=== PATIENT | female | born 2000 ===

== ENCOUNTER → 2019-03-04 | Outpatient (CLI) | payer OTHER | END | disposition home or self-care (01) | LOC: PRENATAL 08:36 | DX: O35.0XX1 Maternal care for (suspected) central nervous system malformation in fetus, fetus 1 (principal); Z34.03 Encounter for supervision of normal first pregnancy, third trimester ==

== ENCOUNTER 2019-04-08 09:30 | Outpatient (CLI) | payer OTHER | END 2019-04-08 10:15 | disposition home or self-care (01) | LOC: PRENATAL 09:30 | DX: O35.0XX1 Maternal care for (suspected) central nervous system malformation in fetus, fetus 1 (principal) ==

== ENCOUNTER 2019-05-06 08:49 | Outpatient (CLI) | payer OTHER ==
[~2019-05-06] VITALS: Ht 149.9 cm; Wt 65.3 kg
[2019-05-07] MEDS ORDERED: PRENATAL TABLE1 EAC1 PO (20:08)
== END 2019-05-07 08:00 | disposition home or self-care (01) ==
LOC: PRENATAL 08:49 → LDR 05-07 19:42 → PRENATAL 05-07 19:42 → LDR 05-07 20:00
DX: O26.843 Uterine size-date discrepancy, third trimester (principal); O35.0XX0 Maternal care for (suspected) central nervous system malformation in fetus, not applicable or unspecified

== ENCOUNTER 2019-05-07 20:06 | Inpatient (IN) | payer OTHER ==
[~2019-05-07] VITALS: Ht 149.9 cm; Wt 65.3 kg
[2019-05-07] MEDS ORDERED: PRENATAL TABLE1 EAC1 PO (20:08)
== END 2019-05-10 11:56 | disposition home or self-care (01) | DRG 807 ==
LOC: LDR 20:06 → OB/GYN 20:06
PROVIDERS: ADMIT Obstetrics & Gynecology
PROC: 10E0XZZ Delivery of Products of Conception, External Approach (ICD-10-PCS; principal; 2019-05-07)
PROC: 10907ZC Drainage of Amniotic Fluid, Therapeutic from Products of Conception, Via Natural or Artificial Opening (ICD-10-PCS; 2019-05-07)
PROC: 3E0P7VZ Introduction of Hormone into Female Reproductive, Via Natural or Artificial Opening (ICD-10-PCS; 2019-05-07)
PROC: 3E033VJ Introduction of Other Hormone into Peripheral Vein, Percutaneous Approach (ICD-10-PCS; 2019-05-07)
PROC: 4A1HXCZ Monitoring of Products of Conception, Cardiac Rate, External Approach (ICD-10-PCS; 2019-05-07)
DX: O80 Encounter for full-term uncomplicated delivery (principal); Z37.0 Single live birth; Z3A.38 38 weeks gestation of pregnancy